=== PATIENT | female | born 1985 | race American Indian/Alaskan Native ===

== ENCOUNTER 2020-05-15 19:45 | Observation (INO) | payer OTHER ==
--- NOTE | 2020-05-15 19:55 | Emergency Department Report ---
ED Neuro Deficit HPI - General Chief Complaint: Weakness Stated Complaint: POSS STROKE Time Seen by Provider: 05/15/20 19:46 Source: patient Mode of arrival: Wheelchair Limitations: No Limitations - History of Present Illness Initial Comments: Patient is a 34-year-old female that presents emergency room with complaints of left-sided weakness and numbness. Patient states she is unable to move her left side. Patient drove here from work and had to be assisted out of her car because she could not walk. Patient states her symptoms started at 630. Ramana frank's last known well time 6:30 PM today. Patient denies chest pain. Patient denies shortness of breath. Patient denies headache. Patient denies blurry vision. Patient denies recent travel. Patient denies recent international travel. Patient denies exposure to the novel coronavirus. Patient denies sick contacts. Patient denies fever and chills. Patient denies cough. Patient denies di arrhea. Patient denies coming in contact with anybody with symptoms of the novel coronavirus. -: Sudden - Related Data Home Medications: Previous Rx's Medication Instructions Recorded Last Taken Type Chlorhexidine Gluconate [Hibiclens] 10 ml TP BID #240 liquid 07/01/18 Unknown Rx Ketorolac [Toradol] 10 mg PO Q6H PRN #15 tablet 07/01/18 Unknown Rx cephALEXin [Keflex] 500 mg PO Q6HR #40 capsule 07/01/18 Unknown Rx Allergies/Adverse Reactions: Allergies Allergy/AdvReac Type Severity Reaction Status Date / Time acetaminophen [From Percocet] Allergy Swelling Verified 07/01/18 16:02 oxycodone [From Percocet] Allergy Swelling Verified 07/01/18 16:02 ED Review of Systems ROS: Stated complaint: POSS STROKE Other details as noted in HPI Constitutional: weakness. denies: chills, fever Eyes: denies: eye pain, eye discharge, vision change ENT: denies: ear pain, throat pain Respiratory: denies: cough, shortness of breath, wheezing Cardiovascular: denies: chest pain, palpitations Endocrine: no symptoms reported Gastrointestinal: denies: abdominal pain, nausea, diarrhea Genitourinary: denies: urgency, dysuria, discharge Musculoskeletal: denies: back pain, joint swelling, arthralgia Skin: denies: rash, lesions Neurological: as per HPI, weakness. denies: headache, paresthesias Psychiatric: denies: anxiety, depression Hematological/Lymphatic: denies: easy bleeding, easy bruising ED Past Medical Hx - Past Medical History Previous Medical History?: No - Surgical History Past Surgical History?: Yes Additional Surgical History: C section - Family History Family history: no significant - Social History Smoking Status: Never Smoker Substance Use Type: None - Medications Home Medications: Home Medications Medication Instructions Recorded Confirmed Last Taken Type Chlorhexidine Gluconate [Hibiclens] 10 ml TP BID #240 liquid 07/01/18 Unknown Rx Ketorolac [Toradol] 10 mg PO Q6H PRN #15 tablet 07/01/18 Unknown Rx cephALEXin [Keflex] 500 mg PO Q6HR #40 capsule 07/01/18 Unknown Rx ED Neuro Physical Exam - General General appearance: alert, in no apparent distress Suspected Stroke: Yes - Head Head exam: Present: atraumatic, normocephalic - Eye Eye exam: Present: normal appearance - ENT ENT exam: Present: mucous membranes moist - Neck Neck exam: Present: normal inspection - Respiratory Respiratory exam: Present: normal lung sounds bilaterally. Absent: respiratory distress - Cardiovascular Cardiovascular Exam: Present: regular rate, normal rhythm. Absent: systolic murmur, diastolic murmur, rubs, gallop - GI/Abdominal GI/Abdominal exam: Present: soft, normal bowel sounds. Absent: distended, tenderness, guarding - Rectal Rectal exam: Present: deferred - Extremities Exam Extremities exam: Present: normal inspection - Back Exam Back exam: Present: normal inspection - Neurological Exam Neurological exam: Present: alert, oriented X3 - NIHSS Assessment Interval: Baseline 1a. Level of Consciousness: alert/keenly responsive 1b. LOC Questions: answers both correctly 1c. LOC Commands: performs tasks correctly 2. Best Gaze: normal 3. Visual: no visual loss 4. Facial Palsy: normal symmetrical movement 5b. Motor Arm Right: no drift 5a. Motor Arm Left: drift 6a. Motor Leg Left: drift 6b. Motor Leg Right: no drift 7. Limb Ataxia: absent 8. Sensory: severe/total sensory loss 9. Best Language: no aphasia 10. Dysarthria: normal 11. Extinction/Inattention: no abnormality Total Score: 4 Stroke Severity: Minor Stroke - Psychiatric Psychiatric exam: Present: normal affect, normal mood - Skin Skin exam: Present: warm, dry, intact, normal color. Absent: rash ED Course Vital Signs 05/15/20 05/15/20 05/15/20 20:21 20:26 20:30 Pulse Rate 73 75 Respiratory 16 16 18 Rate Blood Pressure 132/69 128/77 O2 Sat by Pulse 100 98 Oximetry 05/15/20 21:15 Pulse Rate 75 Respiratory 17 Rate Blood Pressure 134/63 O2 Sat by Pulse 100 Oximetry - Reevaluation(s) Reevaluation #1: After initial valuation, a code stroke was initiated and the patient was sent directly to CT scan and neurology was consulted. 05/15/20 19:54 Reevaluation #2: Patient consented to TPA. 05/15/20 20:15 Reevaluation #3: Just prior to placing the TPA order set, the patient began to move her left arm and left leg. 05/15/20 20:35 Reevaluation #4: I discussed all results with patient. I discussed plan of care with patient. Patient agrees with plan of care and admission. Patient to be admitted to the hospitalist service. 05/15/20 21:39 - Consultations Consultation #1: I discussed the case with Dr. RHODES and he recommends TPA and a CTA of the head neck. 05/15/20 20:15 Dr. Rhodes updated with the status changes that the patient is now moving her left arm and leg. Dr. Rhodes stated he will see the patient again. 05/15/20 20:39 Dr. Rhodes reassessed the patient decided not to do TPA but wants a CTA of the head neck done stat and admission for TIA work-up. 05/15/20 20:43 Consultation #2: Hospitalist consulted for admission. Hospitalist to admit patient. 05/15/20 21:39 - Lab Data Result diagrams: 05/15/20 20:05 05/15/20 20:05 Lab Results 05/15/20 05/15/20 05/15/20 Range/Units 20:05 20:05 20:05 WBC 6.8 (4.5-11.0) K/mm3 RBC 4.19 (3.65-5.03) M/mm3 Hgb 9.2 L (10.1-14.3) gm/dl Hct 30.1 L (30.3-42.9) % MCV 72 L (79-97) fl MCH 22 L (28-32) pg MCHC 31 (30-34) % RDW 19.0 H (13.2-15.2) % Plt Count 397 (140-440) K/mm3 Lymph % (Auto) 38.8 H (13.4-35.0) % [place] % (Auto) 6.6 (0.0-7.3) % Eos % (Auto) 1.1 (0.0-4.3) % Baso % (Auto) 1.3 (0.0-1.8) % Lymph # (Auto) 2.6 (1.2-5.4) K/mm3 [place] # (Auto) 0.4 (0.0-0.8) K/mm3 Eos # (Auto) 0.1 (0.0-0.4) K/mm3 Baso # (Auto) 0.1 (0.0-0.1) K/mm3 Seg Neutrophils % 52.2 (40.0-70.0) % Seg Neutrophils # 3.6 (1.8-7.7) K/mm3 PT 13.7 (12.2-14.9) Sec. INR 1.06 (0.87-1.13) APTT 31.4 (24.2-36.6) Sec. Thrombin Time 15.9 (15.1-19.6) Sec. Sodium 138 (137-145) mmol/L Potassium 4.1 (3.6-5.0) mmol/L Chloride 102.2 (98-107) mmol/L Carbon Dioxide 21 L (22-30) mmol/L Anion Gap 19 mmol/L BUN 10 (7-17) mg/dL Creatinine 0.7 (0.6-1.2) mg/dL Estimated GFR > 60 ml/min BUN/Creatinine Ratio 14 % Glucose 90 (65-100) mg/dL Calcium 9.2 (8.4-10.2) mg/dL Total Bilirubin 1.20 (0.1-1.2) mg/dL AST 21 (5-40) units/L ALT 13 (7-56) units/L Alkaline Phosphatase 78 (35-129) units/L Total Creatine Kinase 312 H (30-135) units/L CK-MB (CK-2) 4.4 H (0.0-4.0) ng/mL CK-MB (CK-2) Rel Index 1.4 (0-4) Troponin T < 0.010 (0.00-0.029) ng/mL Total Protein 8.3 H (6.3-8.2) g/dL Albumin 4.5 (3.9-5) g/dL Albumin/Globulin Ratio 1.2 % - EKG Data -: EKG Interpreted by Nv EKG shows normal: sinus rhythm, axis, intervals, QRS complexes, ST-T waves Rate: normal - Radiology Data Radiology results: report reviewed CT head/brain wo con INDICATION / CLINICAL INFORMATION: 34 years Female; code stroke. TECHNIQUE: Routine CT head without contrast. All CT scans at this location are performed using CT dose reduction for ALARA by means of automated exposure control. COMPARISON: None. FINDINGS: BRAIN / INTRACRANIAL CONTENTS: No acute hemorrhage, mass effect, midline shift, hydrocephalus, or acute, large territorial infarct. No signs of significant atrophy or chronic infarct. No significant white matter abnormality seen. CRANIOCERVICAL JUNCTION: No significant abnormality. ORBITS: No significant abnormality of visualized orbits. SINUSES / MASTOIDS: Visualized paranasal sinuses and mastoid air cells are essentially clear. ADDITIONAL FINDINGS: Prominent soft tissue is seen in the roof the nasopharynx, presumably related to reactive adenoidal tissue. Please clinically correlate. IMPRESSION: 1. No focal mass, hemorrhage, hydrocephalus, or acute, large territorial infarct. CT angio head INDICATION / CLINICAL INFORMATION: 34 years Female; Post-CODE STROKE PROTOCOL. Weakness, TIA.. TECHNIQUE: Thin cut axial images obtained through the head during IV bolus contrast administration. Sagittal, coronal, and 3 plane MIP reconstructions performed by the technologist. NASCET type criteria used evaluate stenoses. Automated exposure control utilized for radiation reduction purposes. COMPARISON: None available. FINDINGS: INTERNAL CAROTID ARTERIES: No significant narrowing appreciated. VERTEBROBASILAR SYSTEM: No significant narrowing appreciated. DISTAL BRANCHES: Distal branches of the anterior, middle, and posterior cerebral arteries are fairly symmetric in appearance and number. P1 segment on the left is relatively hypoplastic-fairly prominent posterior communicating artery is present on the left to help supply blood flow to the left posterior cerebral circulation. ANEURYSM: None identified. ADDITIONAL FINDINGS: Prominent soft tissue is seen in the roof the nasopharynx, presumably related to reactive adenoidal tissue. Please clinically correlate. IMPRESSION: No significant abnormality on this CTA of the head. CT angio neck INDICATION / CLINICAL INFORMATION: 34 years Female; Post-CODE STROKE PROTOCOL, Weakness, TIA. TECHNIQUE: Thin cut axial images obtained through the head during IV bolus contrast administration. Sagittal, coronal, and 3 plane MIP reconstructions performed by the technologist. NASCET type criteria used evaluate stenoses. All CT scans at this location are performed using CT dose reduction for ALARA by means of automated exposure control. COMPARISON: None available. FINDINGS: ARCH: Bovine arch configuration noted. CAROTID ARTERIES: The visualized common and internal carotid arteries are widely patent. VERTEBRAL ARTERIES: Codominant vertebral system seen. No significant stenosis appreciated. ADDITIONAL FINDINGS: Prominent soft tissue is seen in the roof the nasopharynx, presumably related to reactive adenoidal tissue. Please clinically correlate. [place] tonsillar tissue is mildly prominent as well. Small, multiple, presumed intraparotid lymph nodes seen bilaterally. IMPRESSION: No significant stenosis appreciated on this CTA of the neck. - Medical Decision Making Patient is a 33-year-old female that presents emergency room with complaints of left-sided numbness and weakness. Patient last known well time was 6:30 PM. Patient had a code stroke initiated upon initial evaluation. Patient sent directly to CT scan of the head. Patient CT scan of the head was negative for acute findings and bleeds. Patient was seen by neurology. Neurology recommended TPA however in the process of trying to order an obtain the TPA, the patient began to move her left side and her sensation came back to normal. Neurology was then reconsulted and neurology recommended not doing TPA and just do a CTA of the head and neck. Neurology also recommended admission for an MRI and TIA work-up. CTA of the head and neck were negative for acute findings. Patient admitted to the hospital service for further evaluation treatment. Critical care time documented is a multiple reassessments and prolonged time at bedside for reevaluation and evaluations. - Differential Diagnosis TIA, CVA, left-sided weakness, electrolyte imbalance Critical Care Time: Yes Critical care time in (mins) excluding proc time.: 80 Critical care attestation.: If time is entered above; I have spent that time in minutes in the direct care of this critically ill patient, excluding procedure time. Critical Care Time: 80 minutes ED Disposition Clinical Impression: Left-sided weakness, TIA (transient ischemic attack), Left sided numbness Anemia Qualifiers: Anemia type: unspecified type Qualified Code(s): D64.9 - Anemia, unspecified Disposition: 09 OP ADMIT IP TO THIS HOSP Is pt being admited?: Yes Does the pt Need Aspirin: No Condition: Critical Time of Disposition: 21:41
[2020-05-15 20:11] LABS: Basophils # (Auto) 0.1 K/mm3 (0.0-0.1); Basophils % (Auto) 1.3 % (0.0-1.8); Eosinophils # (Auto) 0.1 K/mm3 (0.0-0.4); Eosinophils % (Auto) 1.1 % (0.0-4.3); Hematocrit 30.1 % (30.3-42.9); Hemoglobin 9.2 gm/dl (10.1-14.3); Lymphocytes # (Auto) 2.6 K/mm3 (1.2-5.4); Lymphocytes % (Auto) 38.8 % (13.4-35.0); Mean Corpuscular HGB Conc 31 % (30-34); Mean Corpuscular Volume 72 fl (79-97); Monocytes # (Auto) 0.4 K/mm3 (0.0-0.8); Monocytes % (Auto) 6.6 % (0.0-7.3); Platelet Count 397 K/mm3 (140-440); Red Blood Count 4.19 M/mm3 (3.65-5.03)
--- NOTE | 2020-05-15 20:22 | Cat Scan Report ---
CT head/brain wo con INDICATION / CLINICAL INFORMATION: 34 years Female; code stroke. TECHNIQUE: Routine CT head without contrast. All CT scans at this location are performed using CT dos e reduction for ALARA by means of automated exposure control. COMPARISON: None. FINDINGS: BRAIN / INTRACRANIAL CONTENTS: No acute hemorrhage, mass effect, midline shift, hydrocephalus, or acu te, large territorial infarct. No signs of significant atrophy or chronic infarct. No significant whi te matter abnormality seen. CRANIOCERVICAL JUNCTION: No significant abnormality. ORBITS: No significant abnormality of visualized orbits. SINUSES / MASTOIDS: Visualized paranasal sinuses and mastoid air cells are essentially clear. ADDITIONAL FINDINGS: Prominent soft tissue is seen in the roof the nasopharynx, presumably related to reactive adenoidal tissue. Please clinically correlate. IMPRESSION: 1. No focal mass, hemorrhage, hydrocephalus, or acute, large territorial infarct. CODE STROKE: Exam Completed (LITIGATION SECRETARY/CDT): 05/15/2020 7:08 PM Exam Reviewed (LITIGATION SECRETARY/CDT): 7:13 PM Time of Communication (LITIGATION SECRETARY/CDT): 7:16 PM Licensed Practitioner Receiving Report: Dr. Parada Signer Name: Jw Brown MD, III Signed: 05/15/2020 8:17 PM Workstation Name: [email or web address]
[2020-05-15 20:23] LABS: INR 1.06 (0.87-1.13)
[2020-05-15 20:24] LABS: Partial Thromboplastin Time 31.4 Sec. (24.2-36.6); Thrombin Time 15.9 Sec. (15.1-19.6)
[2020-05-15 20:27] LABS: Creatine Kinase MB 4.4 ng/mL (0.0-4.0)
[2020-05-15 20:29] LABS: Alanine Aminotransferase 13 units/L (7-56); Albumin 4.5 g/dL (3.9-5); Blood Urea Nitrogen 10 mg/dL (7-17); Calcium 9.2 mg/dL (8.4-10.2); Hemolysis Index 2
[2020-05-15 20:30] LABS: BUN/Creatinine Ratio 14
--- NOTE | 2020-05-15 20:30 | Emergency Department Report ---
HPI - General Chief Complaint: Weakness Time Seen by Provider: 05/15/20 19:46 - HPI HPI: [facility] Consult Note # Demographics Consult Type: 0-6 hour Stroke First Name: debbie Last Name: nancy Date of : 1985 Age: 34 Gender: female Time of initial page ([place] ): 05-15-2020, 18:06 Time of return call ([place] ): 05-15-2020, 18:06 # HPI Additional History: 34yo woman who had left sided numbness starting at 630PM today. She is feeling a lot better. However, she still has complaints of weakness and numbness. Possible Alteplase Candidate: not on warfarin or NOACs, no intracranial hemorrhage history, no recent major surgery, no known active major internal bleeding, no known blood disorders # Scores Time of exam and NIHSS ([place] ): 05-15-2020, 18:07 Level of Consciousness 1a: [0] = Alert; keenly responsive LOC Questions 1b: [0] = Answers both questions correctly LOC Commands 1c: [0] = Performs both tasks correctly Best Gaze 2: [0] = Normal Visual 3: [0] = No visual loss Facial Palsy 4: [0] = Normal symmetrical movements Motor Arm Left 5a: [2] = Some effort against gravity Motor Arm Right 5b: [0] = No drift Motor Leg Left 6a: [3] = No effort against gravity Motor Leg Right 6b: [0] = No drift Limb Ataxia 7: [0] = Absent Sensory 8: [1] = Cnep-fw-ozjiigck sensory loss Best Language 9: [0] = No aphasia Dysarthria 10: [0] = Normal Extinction and Inattention 11: [0] = No abnormality NIHSS Total: 6 # ROS Cardiovascular: chest pain # PMH-FH-SH Past Medical History: denies Social History: non-smoker, non-drinker Medications: denies # Exam Vitals: vital signs reviewed SBP: 133 DBP: 64 # Data Time Head CT personally ready by me (): 05-15-2020, 18:[address]: no bleed # Assessment Impression: Acute Ischemic Stroke # Plan Thrombolytic/Intervention: IV alteplase Intraarterial Exclusion: clinically consistent with small vessel disease Time IV Alteplase Recommended (): 05-15-2020, 18:12 Blood Pressure Target: SBP < 180, DBP < 105 Labs: comprehensive metabolic panel, ESR, lipid panel Imaging: (urgency: STAT in ED): CT Angiogram Head and CT Angiogram Neck AND call back with results if abnormal Imaging: (urgency: routine admission): MRI Brain without contrast Diagnostic Test: echo with bubble study Therapy/Evaluation: NPO until swallow evaluation, PT/OT evaluation, speech/swallow consultation DVT Prophylaxis: SCD Alteplase Administration Recommendations: I reviewed the risks/benefits/alternatives of Alteplase with patient. She understands there is potential of life threatening hemorrhage from Alteplase. I stated that I believe benefit outweighs risk. She wishes to proceed with Alteplase, BP goal< 180/105 for 24hrs post Alteplase administration, Use Labetolol 10-20mg IV prn or Nicardipine gtt to maintain BP parameters, No antiplatelets or anticoagulants fo r next 24 hrs unless indicated for emergent IA procedure or other life threatening situation, ICU admission, Call back if there is any decline in neurological condition Other: telemetry monitoring, I have discussed my recommendations with the referring provider Disposition: transfer to ICU Addendum 642PM MST: Re-evaled pt due to improvement (she has not gotten her tPA yet). She is now an NIHSS of 1 (numbness sensation only) Recc: -given such significant improvement, I would hold off on tPA at this time , as she has non-disabling deficit -still get stat CTA head and neck -MRI brain, no contrast, if this is negative, no further stroke eval -give ASA 81mg perday -permissive HTN -ECHO with bubble study -admit to floor w tele -pt and ot eval ED Past Medical Hx - Past Medical History Previous Medical History?: No - Surgical History Past Surgical History?: Yes Additional Surgical History: C section - Social History Smoking Status: Former Smoker Substance Use Type: None - Medications Home Medications: Home Medications Medication Instructions Recorded Confirmed Last Taken Type Chlorhexidine Gluconate [Hibiclens] 10 ml TP BID #240 liquid 07/01/18 Unknown Rx Ketorolac [Toradol] 10 mg PO Q6H PRN #15 tablet 07/01/18 Unknown Rx cephALEXin [Keflex] 500 mg PO Q6HR #40 capsule 07/01/18 Unknown Rx ED Review of Systems ROS: Stated complaint: POSS STROKE Other details as noted in HPI Constitutional: weakness. denies: chills, fever Eyes: denies: eye pain, eye discharge, vision change ENT: denies: ear pain, throat pain Respiratory: denies: cough, shortness of breath, wheezing Cardiovascular: denies: chest pain, palpitations Endocrine: no symptoms reported Gastrointestinal: denies: abdominal pain, nausea, diarrhea Genitourinary: denies: urgency, dysuria, discharge Musculoskeletal: denies: back pain, joint swelling, arthralgia Skin: denies: rash, lesions Neurological: as per HPI, weakness. denies: headache, paresthesias Psychiatric: denies: anxiety, depression Hematological/Lymphatic: denies: easy bleeding, easy bruising Physical Exam - Physical Exam Vital Signs: Vital Signs 05/15/20 20:21 Pulse Rate 73 Respiratory 16 Rate Blood Pressure 132/69 O2 Sat by Pulse 100 Oximetry ED Course Vital Signs 05/15/20 20:21 Pulse Rate 73 Respiratory 16 Rate Blood Pressure 132/69 O2 Sat by Pulse 100 Oximetry ED Medical Decision Making - Lab Data Result diagrams: 05/15/20 20:05 05/15/20 20:05 Critical care attestation.: If time is entered above; I have spent that time in minutes in the direct care of this critically ill patient, excluding procedure time. ED Disposition Condition: Stable Referrals: PRIMARY CARE, [Primary Care Provider] - 3-5 Days
--- NOTE | 2020-05-15 21:39 | Cat Scan Report ---
CT angio head INDICATION / CLINICAL INFORMATION: 34 years Female; Post-CODE STROKE PROTOCOL. Weakness, TIA.. TECHNIQUE: Thin cut axial images obtained through the head during IV bolus contrast administration. S agittal, coronal, and 3 plane MIP reconstructions performed by the technologist. NASCET type criteria used evaluate stenoses. Automated exposure control utilized for radiation reduction purposes. COMPARISON: None available. FINDINGS: INTERNAL CAROTID ARTERIES: No significant narrowing appreciated. VERTEBROBASILAR SYSTEM: No significant narrowing appreciated. DISTAL BRANCHES: Distal branches of the anterior, middle, and posterior cerebral arteries are fairly symmetric in appearance and number. P1 segment on the left is relatively hypoplastic-fairly prominent posterior communicating artery is p resent on the left to help supply blood flow to the left posterior cerebral circulation. ANEURYSM: None identified. ADDITIONAL FINDINGS: Prominent soft tissue is seen in the roof the nasopharynx, presumably related to reactive adenoidal tissue. Please clinically correlate. IMPRESSION: No significant abnormality on this CTA of the head. Signer Name: Jw Brown MD, III Signed: 05/15/2020 9:35 PM Workstation Name: [email or web address] [email or web address]
[2020-05-15] MEDS ORDERED: ASPIRIN 325 MG TAB PO ONE (21:41)
--- NOTE | 2020-05-15 21:42 | Cat Scan Report ---
CT angio neck INDICATION / CLINICAL INFORMATION: 34 years Female; Post-CODE STROKE PROTOCOL, Weakness, TIA. TECHNIQUE: Thin cut axial images obtained through the head during IV bolus contrast administration. S agittal, coronal, and 3 plane MIP reconstructions performed by the technologist. NASCET type criteria used evaluate stenoses. All CT scans at this location are performed using CT dose reduction for ALAR A by means of automated exposure control. COMPARISON: None available. FINDINGS: ARCH: Bovine arch configuration noted. CAROTID ARTERIES: The visualized common and internal carotid arteries are widely patent. VERTEBRAL ARTERIES: Codominant vertebral system seen. No significant stenosis appreciated. ADDITIONAL FINDINGS: Prominent soft tissue is seen in the roof the nasopharynx, presumably related to reactive adenoidal tissue. Please clinically correlate. [place] tonsillar tissue is mildly prominen t as well. Small, multiple, presumed intraparotid lymph nodes seen bilaterally. IMPRESSION: No significant stenosis appreciated on this CTA of the neck. Signer Name: Jw Brown MD, III Signed: 05/15/2020 9:37 PM Workstation Name: [email or web address]
[2020-05-15] MEDS ORDERED: MAGNESIUM HYDROXIDE (MOM) ORAL LIQD UDC PO PRN (21:58)
[2020-05-15] MEDS ORDERED: PROMETHAZINE 25 MG RECT SUPP PR PRN (21:58)
[2020-05-15] MEDS ORDERED: ONDANSETRON 4 MG/2 ML INJ IV PRN (21:58)
[2020-05-15] MEDS ORDERED: METOCLOPRAMIDE 10 MG TAB PO PRN (21:58)
--- NOTE | 2020-05-15 22:08 | History and Physical Report ---
History of Present Illness Date of examination: 05/15/20 Date of admission: 05/15/2020 Chief complaint: Left sided weakness/Numbness History of present illness: 34 year old female with no significant past medical history presenting to the emergency room today with a complaints of left-sided weakness and numbness which started earlier this evening. Last known well time was about 6:30 PM today. Patient indicates that she was at work and she suddenly started having numbness and weakness on the left side. She denies any chest pain or shortness of breath, no headache or dizziness, no fever or chills, no nausea or vomiting, no abdominal pain, no diarrhea. Patient denies any sick contacts and no recent travel. Denies any contact with anyone with COVID-19. Upon arrival in the emergency room she indicates that she had to be helped out of a car she could not walk. During the course of her stay in the emergency room symptoms apparently resolved. Work-up today CT scan of the head was unremarkable. Labs and EKG were also unremarkable. Patient to be worked up for possible TIA . Past History Past Medical History: No medical history Past Surgical History: Social history: no significant social history Family history: no significant family history Medications and Allergies Allergies Allergy/AdvReac Type Severity Reaction Status Date / Time acetaminophen [From Percocet] Allergy Swelling Verified 07/01/18 16:02 oxycodone [From Percocet] Allergy Swelling Verified 07/01/18 16:02 Home Medications Medication Instructions Recorded Confirmed Last Taken Type Chlorhexidine Gluconate [Hibiclens] 10 ml TP BID #240 liquid 07/01/18 Unknown Rx Ketorolac [Toradol] 10 mg PO Q6H PRN #15 tablet 07/01/18 Unknown Rx cephALEXin [Keflex] 500 mg PO Q6HR #40 capsule 07/01/18 Unknown Rx Review of Systems Constitutional: no fever, no chills, no weakness Ears, nose, mouth and throat: no nasal congestion, no sore throat Cardiovascular: no chest pain, no palpitations Respiratory: no cough, no shortness of breath Gastrointestinal: no nausea, no vomiting, no diarrhea Genitourinary Female: no dysuria, no hematuria Musculoskeletal: no neck pain, no low back pain Integumentary: no rash, no pruritis Neurological: no headaches, no confusion Psychiatric: no anxiety, no depression Exam - Constitutional Vitals: Temp Pulse Resp BP Pulse Ox 75 17 134/63 100 05/15/20 21:15 05/15/20 21:15 05/15/20 21:15 05/15/20 21:15 General appearance: Present: no acute distress, well-nourished, obese - EENT Eyes: Present: PERRL, EOM intact. Absent: scleral icterus ENT: hearing intact, clear oral mucosa, dentition normal - Neck Neck: Present: supple, normal ROM - Respiratory Respiratory effort: normal Respiratory: bilateral: CTA - Cardiovascular Rhythm: regular Heart Sounds: Present: S1 & S2. Absent: gallop, systolic murmur, diastolic murm ur, rub, click - Extremities Extremities: no ischemia, pulses intact, pulses symmetrical, No edema, Full ROM Peripheral Pulses: within normal limits - Abdominal General gastrointestinal: Present: soft, non-tender, non-distended, normal bowel sounds. Absent: mass - Integumentary Integumentary: Present: clear, warm, dry. Absent: rash - Musculoskeletal Musculoskeletal: strength equal bilaterally - Psychiatric Psychiatric: appropriate mood/affect, intact judgment & insight, memory intact, cooperative - Neurologic Neurologic: CNII-XII intact, no focal deficits, moves all extremities HEART Score - HEART Score Troponin: Troponin T < 0.010 ng/mL (0.00-0.029) 05/15/20 20:05 Results - Labs CBC & Chem 7: 05/15/20 20:05 05/15/20 20:05 Labs: Abnormal lab results 05/15/20 05/15/20 Range/Units 20:05 20:05 Hgb 9.2 L (10.1-14.3) gm/dl Hct 30.1 L (30.3-42.9) % MCV 72 L (79-97) fl MCH 22 L (28-32) pg RDW 19.0 H (13.2-15.2) % Lymph % (Auto) 38.8 H (13.4-35.0) % Carbon Dioxide 21 L (22-30) mmol/L Total Creatine Kinase 312 H (30-135) units/L CK-MB (CK-2) 4.4 H (0.0-4.0) ng/mL Total Protein 8.3 H (6.3-8.2) g/dL Assessment and Plan - Patient Problems (1) TIA (transient ischemic attack) Current Visit: Yes Status: Acute Plan to address problem: Patient admitted and placed on telemetry. Will place patient on daily aspirin and statin. We will schedule patient for MRI of the brain, carotid Doppler and echocardiogram. Consult placed to neurology for evaluation. (2) Obesity Current Visit: Yes Status: Acute Plan to address problem: Patient has a BMI of 42.1. Lifestyle modification encouraged. We will also place dietary consult. (3) DVT prophylaxis Current Visit: Yes Status: Acute Plan to address problem: Patient placed on subcutaneous heparin. (4) Full code status Current Visit: Yes Status: Acute Plan to address problem: Patient is a full code.
[2020-05-16 05:38] LABS: Basophils % (Auto) 0.7 % (0.0-1.8); Eosinophils # (Auto) 0.2 K/mm3 (0.0-0.4); Eosinophils % (Auto) 3.2 % (0.0-4.3); Hematocrit 27.5 % (30.3-42.9); Hemoglobin 8.4 gm/dl (10.1-14.3); Lymphocytes # (Auto) 2.2 K/mm3 (1.2-5.4); Lymphocytes % (Auto) 42.6 % (13.4-35.0); Mean Corpuscular HGB Conc 31 % (30-34); Mean Corpuscular Volume 72 fl (79-97); Monocytes # (Auto) 0.4 K/mm3 (0.0-0.8); Monocytes % (Auto) 7.3 % (0.0-7.3); Platelet Count 339 K/mm3 (140-440); Red Blood Count 3.82 M/mm3 (3.65-5.03); Red Cell Distribution Width 18.5 % (13.2-15.2)
[2020-05-16 05:43] LABS: INR 1.18 (0.87-1.13)
[2020-05-16 05:50] LABS: Blood Urea Nitrogen 8 mg/dL (7-17); Calcium 8.3 mg/dL (8.4-10.2); Chol/HDL Ratio 2.88 %; HDL Cholesterol 42 mg/dL (40-59); Hemolysis Index 2; LDL Cholesterol,Direct 79 mg/dL (50-130)
[2020-05-16 06:04] LABS: BUN/Creatinine Ratio 11
[2020-05-16] MEDS: HEPARIN 5,000 UNIT/1 ML VIAL SUB-Q SCH ×3 (06:55→21:19)
[2020-05-16] MEDS ORDERED: ASPIRIN 325 MG TAB PO SCH (10:00)
--- NOTE | 2020-05-16 11:57 | Vascular Lab Report ---
DUPLEX DOPPLER ULTRASOUND CAROTID, BILATERAL INDICATION / CLINICAL INFORMATION: stroke. COMPARISON: None available. FINDINGS: RIGHT CAROTID: - PLAQUE ESTIMATE (%): < 50% - CCA velocity: 123 cm/sec. - ICA peak systolic velocity: 117 cm/sec. - ICA/CCA PSV Ratio: 0.95 Right Vertebral Artery: Antegrade flow. LEFT CAROTID: - PLAQUE ESTIMATE: < 50% - CCA velocity: 112 cm/sec. - ICA peak systolic velocity: 1 4 cm/sec. - ICA/CCA PSV Ratio: 0.93 Left Vertebral Artery: Antegrade flow. IMPRESSION: 1. Right Internal Carotid Artery: Less than 50% diameter stenosis. 2. Left Internal Carotid Artery: Less than 50% diameter stenosis. Velocity criteria are extrapolated from diameter data as defined by the Society of Radiologists in [facility] Consensus Conference, Radiology 2003; 229;340-346. NO STENOSIS (NORMAL) * Plaque = none; ICA PSV < 125 cm/sec; ICA/CCA PSV Ratio < 2.0 <50% STENOSIS * Plaque < 50%; ICA PSV < 125 cm/sec; ICA/CCA PSV Ratio < 2.0 50-69% STENOSIS * Plaque > 50%; ICA PSV = 125-230 cm/sec; ICA/CCA PSV Ratio = 2.0-4.0 >70% BUT <100% STENOSIS * Plaque > 50%; ICA PSV > 230 cm/sec; ICA/CCA PSV Ratio > 4.0 NEAR OCCLUSION * Plaque = visible lumen; ICA PSV = high/low/none; ICA/CCA PSV Ratio = variable TOTAL OCCLUSION * Plaque = no lumen; ICA PSV = none; ICA/CCA PSV Ratio = N/A Signer Name: Chente Rose MD Signed: 05/16/2020 11:52 AM Workstation Name: [id number]
--- NOTE | 2020-05-16 12:38 | Progress Note ---
Assessment and Plan Assessment and plan: #Transient ischemic attack CT head negative for any stroke in the ER CTA head and neck showed no acute abnormality Echocardiogram pending. MRI also pending Started on aspirin 325 mg daily Lipid panel Hemoglobin A1c-5.8 Neurology consultation #Morbid obesity Diet and exercise advised #DVT prophylaxis-Lovenox Full code History Interval history: 05/16. Patient here with stroke like symptoms. Symptoms resolved yesterday. CT head and CTA head and neck performed in the ER were negative for any acute abnormality. Neurologist has been consulted. Patient started on aspirin 325 mg daily. Echocardiogram and MRI ordered this morning. Vitals remained stable Hospitalist Physical - Physical exam Narrative exam: VITAL SIGNS: Reviewed. GENERAL: Awake HEAD: No signs of head trauma. EYES: Pupils are equal. Extraocular motions intact. MOUTH: Oropharynx is normal. NECK: No adenopathy, no JVD. CHEST: Chest with diminished breath sounds bilaterally. No wheezes, rales, or rhonchi. CARDIAC: normal S1 and S2, without murmurs, gallops, or rubs. ABDOMEN: Soft, non tender and non distended. No rebound or guarding, and no masses palpated. Bowel Sounds normal. MUSCULOSKELETAL: No edema NEUROLOGIC EXAM: Alert and oriented x3. No focal neurologic deficits SKIN: No obvious lesions - Constitutional Vitals: Temp Pulse Resp BP Pulse Ox 98.0 F 63 18 135/91 100 05/16/20 08:08 05/16/20 08:08 05/16/20 08:08 05/16/20 08:08 05/16/20 08:08 HEART Score - HEART Score Troponin: Troponin T < 0.010 ng/mL (0.00-0.029) 05/15/20 20:05 Results - Labs CBC & Chem 7: 05/16/20 04:47 05/16/20 04:47 Labs: Laboratory Last Values WBC 5.1 K/mm3 (4.5-11.0) 05/16/20 04:47 RBC 3.82 M/mm3 (3.65-5.03) 05/16/20 04:47 Hgb 8.4 gm/dl (10.1-14.3) L 05/16/20 04:47 Hct 27.5 % (30.3-42.9) L 05/16/20 04:47 MCV 72 fl (79-97) L 05/16/20 04:47 MCH 22 pg (28-32) L 05/16/20 04:47 MCHC 31 % (30-34) 05/16/20 04:47 RDW 18.5 % (13.2-15.2) H 05/16/20 04:47 Plt Count 339 K/mm3 (140-440) 05/16/20 04:47 Lymph % (Auto) 42.6 % (13.4-35.0) H 05/16/20 04:47 [place] % (Auto) 7.3 % (0.0-7.3) 05/16/20 04:47 Eos % (Auto) 3.2 % (0.0-4.3) 05/16/20 04:47 Baso % (Auto) 0.7 % (0.0-1.8) 05/16/20 04:47 Lymph # (Auto) 2.2 K/mm3 (1.2-5.4) 05/16/20 04:47 Band[place] # (Auto) 0.4 K/mm3 (0.0-0.8) 05/16/20 04:47 Eos # (Auto) 0.2 K/mm3 (0.0-0.4) 05/16/20 04:47 Baso # (Auto) 0.0 K/mm3 (0.0-0.1) 05/16/20 04:47 Seg Neutrophils % 46.2 % (40.0-70.0) 05/16/20 04:47 Seg Neutrophils # 2.4 K/mm3 (1.8-7.7) 05/16/20 04:47 PT 15.0 Sec. (12.2-14.9) H 05/16/20 04:47 INR 1.18 (0.87-1.13) H 05/16/20 04:47 APTT 31.4 Sec. (24.2-36.6) 05/15/20 20:05 Thrombin Time 15.9 Sec. (15.1-19.6) 05/15/20 20:05 Sodium 136 mmol/L (137-145) L 05/16/20 04:47 Potassium 3.8 mmol/L (3.6-5.0) 05/16/20 04:47 Chloride 103.2 mmol/L (98-107) 03/04/21 04:47 Carbon Dioxide 24 mmol/L (22-30) 05/16/20 04:47 Anion Gap 13 mmol/L 05/16/20 04:47 BUN 8 mg/dL (7-17) 05/16/20 04:47 Creatinine 0.7 mg/dL (0.6-1.2) 05/16/20 04:47 Estimated GFR > 60 ml/min 05/16/20 04:47 BUN/Creatinine Ratio 11 % 05/16/20 04:47 Glucose 100 mg/dL (65-100) 05/16/20 04:47 Hemoglobin A1c 5.3 % (4-6) 05/16/20 04:47 Calcium 8.3 mg/dL (8.4-10.2) L 05/16/20 04:47 Total Bilirubin 1.20 mg/dL (0.1-1.2) 05/15/20 20:05 AST 21 units/L (5-40) 05/15/20 20:05 ALT 13 units/L (7-56) 05/15/20 20:05 Alkaline Phosphatase 78 units/L (35-129) 05/15/20 20:05 Total Creatine Kinase 312 units/L (30-135) H 05/15/20 20:05 CK-MB (CK-2) 4.4 ng/mL (0.0-4.0) H 05/15/20 20:05 CK-MB (CK-2) Rel Index 1.4 (0-4) 05/15/20 20:05 Troponin T < 0.010 ng/mL (0.00-0.029) 05/15/20 20:05 Total Protein 8.3 g/dL (6.3-8.2) H 05/15/20 20:05 Albumin 4.5 g/dL (3.9-5) 05/15/20 20:05 Albumin/Globulin Ratio 1.2 % 05/15/20 20:05 Triglycerides 66 mg/dL (2-149) 05/16/20 04:47 Cholesterol 121 mg/dL (50-199) 05/16/20 04:47 LDL Cholesterol Direct 79 mg/dL (50-130) 05/16/20 04:47 HDL Cholesterol 42 mg/dL (40-59) 05/16/20 04:47 Cholesterol/HDL Ratio 2.88 % 05/16/20 04:47 Villa/IV: Voiding Method Toilet Active Medications - Current Medications Current Medications: Generic Name Dose Route Start Last Admin Trade Name Freq PRN Reason Stop Dose Admin Aspirin 325 mg 05/16/20 10:00 05/16/20 12:04 Aspirin 325 Mg Tab PO 325 mg QDAY GUILLERMO Administration Atorvastatin Calcium 40 mg 05/15/20 22:00 05/15/20 23:45 Atorvastatin 40 Mg Tab PO 40 mg QHS GUILLERMO Administration Bisacodyl 10 mg 05/15/20 21:58 Bisacodyl [address] QDAY PRN Constipation Heparin Sodium (Porcine) 5,000 unit 05/16/20 06:00 05/16/20 06:55 Heparin 5,000 Unit/1 Ml Vial SUB-Q 5,000 unit Q8HR GUILLERMO Administration Magnesium Hydroxide 30 ml 05/15/20 21:58 Magnesium Hydroxide (Mom) Oral Liqd Udc PO Q4H PRN Constipation Metoclopramide HCl 10 mg 05/15/20 21:58 Metoclopramide 10 Mg Tab PO Q6H PRN Nausea And Vomiting Ondansetron HCl 4 mg 05/15/20 21:58 Ondansetron 4 Mg/2 Ml Inj IV Q8H PRN Nausea And Vomiting Promethazine HCl 25 mg 05/15/20 21:58 Promethazine [address] Q6H PRN Nausea And Vomiting Sodium Chloride 10 ml 05/15/20 22:00 05/16/20 12:04 Sodium Chloride 0.9% 10 Ml Flush Syringe IV 10 ml BID GUILLERMO Administration Sodium Chloride 10 ml 05/15/20 21:58 Sodium Chloride 0.9% 10 Ml Flush Syringe IV PRN PRN LINE FLUSH
--- NOTE | 2020-05-16 12:47 | Magnetic Resonance Report ---
MRI BRAIN WITHOUT CONTRAST INDICATION / CLINICAL INFORMATION: stroke. TECHNIQUE: Multiplanar, multisequence MR images of the brain were obtained. COMPARISON: None available. FINDINGS: BRAIN / INTRACRANIAL CONTENTS: Ventricles and cortical sulci are normal in size and configuration. Th ere is no mass effect. No evidence of intracranial hemorrhage or extra-axial fluid collection is seen . No significant areas of abnormal brain parenchymal signal intensity are identified. There is no ind ication of remote cortical infarction. Diffusion weighted scans are negative. There is no indication of acute ischemic injury. The brainstem and cerebellum have an unremarkable appearance. MIDLINE STRUCTURES:No abnormalities are seen to involve the pituitary gland. Pineal region has an unr emarkable appearance. CRANIOCERVICAL JUNCTION: No abnormalities are identified at the craniocervical junction. VASCULAR FLOW-VOIDS: Normal flow-voids are present within the major intracranial vessels. ORBITS: Bilaterally symmetrical enlargement of the lacrimal glands is noted. Are there signs or sympt oms of Sjogren's syndrome SINUSES / MASTOIDS: There is no indication of inflammatory disease in the paranasal sinuses or mastoi d air cells. IMPRESSION: 1. No intercranial abnormality on MRI brain without contrast. 2. Bilaterally symmetrical enlargement of the lacrimal glands is demonstrated. Signer Name: Delmer Basilio MD Signed: 05/16/2020 12:43 PM Workstation Name: [id number]
--- NOTE | 2020-05-16 14:53 | Consultation ---
History of Present Illness Consult date: 05/16/20 Reason for Consult: CVA Chief complaint: Left-sided numbness History of present illness: 34 yo female p/w c/o left-sided numbness that initially began in the left foot and then involved the left arm and leg, followed by chest pain. Currently, notes left heel numbness. Past History Past Medical History: No medical history Past Surgical History: Social history: no significant social history Family history: no significant family history Medications and Allergies Allergies Allergy/AdvReac Type Severity Reaction Status Date / Time acetaminophen [From Percocet] Allergy Swelling Verified 07/01/18 16:02 oxycodone [From Percocet] Allergy Swelling Verified 07/01/18 16:02 Home Medications Medication Instructions Recorded Confirmed Last Taken Type Chlorhexidine Gluconate [Hibiclens] 10 ml TP BID #240 liquid 07/01/18 Unknown Rx Ketorolac [Toradol] 10 mg PO Q6H PRN #15 tablet 07/01/18 Unknown Rx cephALEXin [Keflex] 500 mg PO Q6HR #40 capsule 07/01/18 Unknown Rx Active Meds: Active Medications Aspirin (Aspirin 325 Mg Tab) 325 mg PO QDAY [facility] Last Admin: 05/16/20 12:04 Dose: 325 mg Documented by: Atorvastatin Calcium (Atorvastatin 40 Mg Tab) 40 mg PO QHS [facility] Last Admin: 05/15/20 23:45 Dose: 40 mg Documented by: Bisacodyl (Bisacodyl 10 Mg Rect Supp) 10 mg ME QDAY PRN PRN Reason: Constipation Heparin Sodium (Porcine) (Heparin 5,000 Unit/1 Ml Vial) 5,000 unit SUB-Q Q8HR [facility] Last Admin: 05/16/20 13:59 Dose: 5,000 unit Documented by: Magnesium Hydroxide (Magnesium Hydroxide (Mom) Oral Liqd Udc) 30 ml PO Q4H PRN PRN Reason: Constipation Metoclopramide HCl (Metoclopramide 10 Mg Tab) 10 mg PO Q6H PRN PRN Reason: Nausea And Vomiting Ondansetron HCl (Ondansetron 4 Mg/2 Ml Inj) 4 mg IV Q8H PRN PRN Reason: Nausea And Vomiting Promethazine HCl (Promethazine 25 Mg Rect Supp) 25 mg ME Q6H PRN PRN Reason: Nausea And Vomiting Sodium Chloride (Sodium Chloride 0.9% 10 Ml Flush Syringe) 10 ml IV BID GUILLERMO Last Admin: 05/16/20 12:04 Dose: 10 ml Documented by: Sodium Chloride (Sodium Chloride 0.9% 10 Ml Flush Syringe) 10 ml IV PRN PRN PRN Reason: LINE FLUSH Review of Systems All systems: negative (as per HPI;) Physical Examination - Vital Signs Vital Signs: Vital Signs Temp Pulse Resp BP Pulse Ox 98 F 73 16 121/70 100 05/15/20 20:21 05/15/20 20:21 05/15/20 20:21 05/15/20 20:21 05/15/20 20:21 - Physical Exam Narrative exam: Gen: nad, well-nourished; Head: normocephalic; Eyes: no gaze deviation; no ptosis; ENT: normal vocalization; CVS: warm and well-perfused; Pulm: no respiratory distress; GI: appears non-distended; Ext: no cyanosis at distal extremities; Skin: no acute rash at distal extremities; Heme: no pathologic bruising or ecchymosis at distal extremities; Neuro: alert, oriented to name, age, month, year, surroundings, no dysarthria, no aphasia, CN 2 - PERRL, visual zuniga intact, CN 3, 4, 6 - EOMI, CN 5 - facial sensation symmetric to light touch, CN 7 - facial movement symmetric, CN 8 - hearing grossly intact, CN 9, 10 - uvula midline, CN 11 - shrug symmetric, CN 12 - tongue midline; Motor - at least 4+/5 in all exts; Sensory - light touch symmetric, Cerebellar - fnf /hts intact, Gait - deferred secondary to fall risk; NIHSS (1a.) Level of Consciousness:0 (1b.) LOC Questions:0 (1c.) LOC Commands:0 (2.) Best Gaze:0 (3.) Visual:0 (4.) Facial Palsy:0 (5a.) Motor Arm, Left:0 (5b.) Motor Arm, Right:0 (6a.) Motor Leg, Left:0 (6b.) Motor Leg, Right:0 (7.) Limb Ataxia:0 (8.) Sensory:0 (9.) Best Language:0 (10.) Dysarthria:0 (11.) Extinction and Inattention:0 NIHSS Total Score: 0 Results - Laboratory Findings CBC and BMP: 05/16/20 04:47 05/16/20 04:47 Abnormal Lab Findings: Abnormal Labs 05/15/20 05/15/20 05/16/20 20:05 20:05 04:47 Hgb 9.2 L 8.4 L Hct 30.1 L 27.5 L MCV 72 L 72 L MCH 22 L 22 L RDW 19.0 H 18.5 H Lymph % (Auto) 38.8 H 42.6 H PT INR Sodium Carbon Dioxide 21 L Calcium Total Creatine Kinase 312 H CK-MB (CK-2) 4.4 H Total Protein 8.3 H 05/16/20 05/16/20 04:47 04:47 Hgb Hct MCV MCH RDW Lymph % (Auto) PT 15.0 H INR 1.18 H Sodium 136 L Carbon Dioxide Calcium 8.3 L Total Creatine Kinase CK-MB (CK-2) Total Protein Assessment and Plan 34 yo female with acute onset of left-sided numbness followed by chest pain. 1. Left heel numbness - ?clot; recommend a hypercoaguable workup; Aspirin 81 mg po qday; statin therapy for a goal LDL of 70; TTE/CUS results pending; confirm A1C/LDL; statin therapy for a goal LDL of 70. 2. Followup with Neurology in 4 weeks.
--- NOTE | 2020-05-16 15:16 | Consultation ---
History of Present Illness - Reason for Consult Consult date: 05/16/20 - History of Present Illness [facility] Consult Note # Demographics Consult Type: 0-6 hour Stroke First Name: debbie Last Name: nancy Date of : 1985 Age: 34 Gender: female Time of initial page ([place] ): 05-15-2020, 18:06 Time of return call ([place] ): 05-15-2020, 18:06 # HPI Additional History: 34yo woman who had left sided numbness starting at 630PM today. She is feeling a lot better. However, she still has complaints of weakness and numbness. Possible Alteplase Candidate: not on warfarin or NOACs, no intracranial hemorrhage history, no recent major surgery, no known active major internal bleeding, no known blood disorders # Scores Time of exam and NIHSS ([place] ): 05-15-2020, 18:07 Level of Consciousness 1a: [0] = Alert; keenly responsive LOC Questions 1b: [0] = Answers both questions correctly LOC Commands 1c: [0] = Performs both tasks correctly Best Gaze 2: [0] = Normal Visual 3: [0] = No visual loss Facial Palsy 4: [0] = Normal symmetrical movements Motor Arm Left 5a: [2] = Some effort against gravity Motor Arm Right 5b: [0] = No drift Motor Leg Left 6a: [3] = No effort against gravity Motor Leg Right 6b: [0] = No drift Limb Ataxia 7: [0] = Absent Sensory 8: [1] = [id number] sensory loss Best Language 9: [0] = No aphasia Dysarthria 10: [0] = Normal Extinction and Inattention 11: [0] = No abnormality NIHSS Total: 6 # ROS Cardiovascular: chest pain # PMH-FH-SH Past Medical History: denies Social History: non-smoker, non-drinker Medications: denies # Exam Vitals: vital signs reviewed SBP: 133 DBP: 64 # Data Time Head CT personally ready by me (): 05-15-2020, 18:[address]: no bleed # Assessment Impression: Acute Ischemic Stroke # Plan Thrombolytic/Intervention: IV alteplase Intraarterial Exclusion: clinically consistent with small vessel disease Time IV Alteplase Recommended (): 05-15-2020, 18:12 Blood Pressure Target: SBP < 180, DBP < 105 Labs: comprehensive metabolic panel, ESR, lipid panel Imaging: (urgency: STAT in ED): CT Angiogram Head and CT Angiogram Neck AND call back with results if abnormal Imaging: (urgency: routine admission): MRI Brain without contrast Diagnostic Test: echo with bubble study Therapy/Evaluation: NPO until swallow evaluation, PT/OT evaluation, speech/swallow consultation DVT Prophylaxis: SCD Alteplase Administration Recommendations: I reviewed the risks/benefits/alter natives of Alteplase with patient. She understands there is potential of life threatening hemorrhage from Alteplase. I stated that I believe benefit outweighs risk. She wishes to proceed with Alteplase, BP goal< 180/105 for 24hrs post Alteplase administration, Use Labetolol 10-20mg IV prn or Nicardipine gtt to maintain BP parameters, No antiplatelets or anticoagulants for next 24 hrs unless indicated for emergent IA procedure or other life threatening situation, ICU admission, Call back if there is any decline in neurological condition Other: telemetry monitoring, I have discussed my recommendations with the referring provider Disposition: transfer to ICU Addendum 642PM MST: Re-evaled pt due to improvement (she has not gotten her tPA yet). She is now an NIHSS of 1 (numbness sensation only) Recc: -given such significant improvement, I would hold off on tPA at this time , as she has non-disabling deficit -still get stat CTA head and neck -MRI brain, no contrast, if this is negative, no further stroke eval -give ASA 81mg perday -permissive HTN -ECHO with bubble study -admit to floor w tele -pt and ot eval Past History Past Medical History: No medical history Past Surgical History: Social history: no significant social history Family history: no significant family history Medications and Allergies Allergies Allergy/AdvReac Type Severity Reaction Status Date / Time acetaminophen [From Percocet] Allergy Swelling Verified 07/01/18 16:02 oxycodone [From Percocet] Allergy Swelling Verified 07/01/18 16:02 Home Medications Medication Instructions Recorded Confirmed Last Taken Type Chlorhexidine Gluconate [Hibiclens] 10 ml TP BID #240 liquid 07/01/18 Unknown Rx Ketorolac [Toradol] 10 mg PO Q6H PRN #15 tablet 07/01/18 Unknown Rx cephALEXin [Keflex] 500 mg PO Q6HR #40 capsule 07/01/18 Unknown Rx Active Meds: Active Medications Aspirin (Aspirin 325 Mg Tab) 325 mg PO QDAY [facility] Last Admin: 05/16/20 12:04 Dose: 325 mg Documented by: Atorvastatin Calcium (Atorvastatin 40 Mg Tab) 40 mg PO QHS [facility] Last Admin: 05/15/20 23:45 Dose: 40 mg Documented by: Bisacodyl (Bisacodyl 10 Mg Rect Supp) 10 mg OK QDAY PRN PRN Reason: Constipation Heparin Sodium (Porcine) (Heparin 5,000 Unit/1 Ml Vial) 5,000 unit SUB-Q Q8HR [facility] Last Admin: 05/16/20 13:59 Dose: 5,000 unit Documented by: Magnesium Hydroxide (Magnesium Hydroxide (Mom) Oral Liqd Udc) 30 ml PO Q4H PRN PRN Reason: Constipation Metoclopramide HCl (Metoclopramide 10 Mg Tab) 10 mg PO Q6H PRN PRN Reason: Nausea And Vomiting Ondansetron HCl (Ondansetron 4 Mg/2 Ml Inj) 4 mg IV Q8H PRN PRN Reason: Nausea And Vomiting Promethazine HCl (Promethazine 25 Mg Rect Supp) 25 mg OK Q6H PRN PRN Reason: Nausea And Vomiting Sodium Chloride (Sodium Chloride 0.9% 10 Ml Flush Syringe) 10 ml IV BID [facility] Last Admin: 05/16/20 12:04 Dose: 10 ml Documented by: Sodium Chloride (Sodium Chloride 0.9% 10 Ml Flush Syringe) 10 ml IV PRN PRN PRN Reason: LINE FLUSH Exam - Constitutional Vitals: Temp Pulse Resp BP Pulse Ox 98.0 F 63 18 135/91 100 05/16/20 08:08 05/16/20 08:08 05/16/20 08:08 05/16/20 08:08 05/16/20 10:20 Results - Labs CBC & Chem 7: 05/16/20 04:47 05/16/20 04:47 Labs: Abnormal lab results 05/15/20 05/15/20 05/16/20 Range/Units 20:05 20:05 04:47 Hgb 9.2 L 8.4 L (10.1-14.3) gm/dl Hct 30.1 L 27.5 L (30.3-42.9) % MCV 72 L 72 L (79-97) fl MCH 22 L 22 L (28-32) pg RDW 19.0 H 18.5 H (13.2-15.2) % Lymph % (Auto) 38.8 H 42.6 H (13.4-35.0) % PT (12.2-14.9) Sec. INR (0.87-1.13) Sodium (137-145) mmol/L Carbon Dioxide 21 L (22-30) mmol/L Calcium (8.4-10.2) mg/dL Total Creatine Kinase 312 H (30-135) units/L CK-MB (CK-2) 4.4 H (0.0-4.0) ng/mL Total Protein 8.3 H (6.3-8.2) g/dL 05/16/20 05/16/20 Range/Units 04:47 04:47 Hgb (10.1-14.3) gm/dl Hct (30.3-42.9) % MCV (79-97) fl MCH (28-32) pg RDW (13.2-15.2) % Lymph % (Auto) (13.4-35.0) % PT 15.0 H (12.2-14.9) Sec. INR 1.18 H (0.87-1.13) Sodium 136 L (137-145) mmol/L Carbon Dioxide (22-30) mmol/L Calcium 8.3 L (8.4-10.2) mg/dL Total Creatine Kinase (30-135) units/L CK-MB (CK-2) (0.0-4.0) ng/mL Total Protein (6.3-8.2) g/dL
[2020-05-17] MEDS: HEPARIN 5,000 UNIT/1 ML VIAL SUB-Q SCH ×2 (05:05→14:02)
[2020-05-17 08:19] VITALS: BP 131/76
--- NOTE | 2020-05-17 09:20 | Discharge Summary ---
Providers - Providers Date of Admission: 05/15/20 21:45 Date of discharge: 05/17/20 Attending physician: NASH JACKSON 05/15/20 Consult to Physician [CONS] Routine Comment: Consulting Provider: MITESH TA Physician Instructions: Reason For Exam: TIA VS CVA 05/15/20 21:58 Consult to Dietitian/Nutrition [CONS] Routine Physician Instructions: Reason For Exam: Reason for Consult: Nutrition Recommendations Reason for Consult: Diet education Occupational Therapy Evaluate and Treat [CONS] Routine Comment: Reason For Exam: Neuro deficits Physical Therapy Evaluation and Treat [CONS] Routine Comment: Reason For Exam: Neuro deficits 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 Last known well time was about 6:30 PM prior to admission. Patient indicates that she was at work and she suddenly started having numbness and weakness on the left side. She denied any chest pain or shortness of breath, no headache or dizziness, no fever or chills, no nausea or vomiting, no abdominal pain, no diarrhea. Patient denied any sick contacts and no recent travel. Denied any contact with anyone with COVID-19. CT scan of the head was unremarkable. Patient was admitted with diagnosis of TIA and underwent studies including carotid ultrasound and echocardiogram which were found to be negative. No PFO. CTA of the head and neck was also negative. MRI negative. Neurology was consulted and recommended hypercoagulable work-up with aspirin 81 mg p.o. daily. Hypercoagulable studies ordered and patient will follow up with neurology in 4 weeks for follow-up of studies and further evaluation. Physical therapy evaluated the patient and recommended outpatient physical therapy. Dedicated discharge time 35 minutes Disposition: DC-01 TO HOME OR SELFCARE Time spent for discharge: 35 Core Measure Documentation - Palliative Care Palliative Care/ Comfort Measures: Not Applicable - Core Measures Any of the following diagnoses?: stroke - Stroke Discharge Requirements Statin for LDL = or >70 mg/dl on DC: Yes Anticoag for atrial fib/atrial flutter: Not Applicable Antithrombotic for ischemic stroke: Yes Exam - Constitutional Vitals: Temp Pulse Resp BP Pulse Ox 98.0 F 55 L 18 131/76 94 05/17/20 08:19 05/17/20 08:19 05/17/20 08:19 05/17/20 08:19 05/17/20 08:19 General appearance: Present: no acute distress, well-nourished - EENT Eyes: Present: PERRL ENT: hearing intact, clear oral mucosa - Neck Neck: Present: supple, normal ROM - Respiratory Respiratory effort: normal Respiratory: bilateral: CTA - Cardiovascular Heart Sounds: Present: S1 & S2. Absent: rub, click - Extremities Extremities: pulses symmetrical, No edema Peripheral Pulses: within normal limits - Abdominal General gastrointestinal: Present: soft, non-tender, non-distended, normal bowel sounds Female genitourinary: Present: normal - Integumentary Integumentary: Present: clear, warm, dry - Musculoskeletal Musculoskeletal: gait normal, strength equal bilaterally - Psychiatric Psychiatric: appropriate mood/affect, intact judgment & insight - Neurologic Neurologic: CNII-XII intact, moves all extremities Plan Activity: advance as tolerated Weight Bearing Status: Weight Bear as Tolerated Diet: regular Additional Instructions: Follow-up with neurology for hypercoagulable work-up Follow up with: PRIMARY MD MARISSA [Primary Care Provider] - 3-5 Days MITESH TA MD [Staff Physician] - 7 Days Prescriptions: Aspirin EC [Halfprin EC] 81 mg PO QDAY #30 tablet AtorvaSTATin [Lipitor] 40 mg PO QHS #30 tablet
--- NOTE | 2020-05-17 09:45 | Magnetic Resonance Report ---
MR MRA/MRV head wo con INDICATION / CLINICAL INFORMATION: 34 years Female; VST. TECHNIQUE: 3-D time of flight. NASCET type criteria used to evaluate stenoses. Motion artifact COMPARISON: None available. FINDINGS: INTERNAL CAROTID ARTERIES: Focal area of mild narrowing is seen in the proximal aspect of the communi cating portion of the left internal carotid artery. No other significant narrowing appreciated in the carotid arteries. VERTEBROBASILAR SYSTEM: No significant narrowing appreciated. DISTAL BRANCHES: Distal branches of the anterior, middle, and posterior cerebral arteries are fairly symmetric in appearance and number. Focal areas of mild narrowing are seen in the hypoplastic P1 segment on the left. Focal area of moderate narrowing is suggested in the proximal portion of a frontoparietal polar branc h in the left MCA territory. ANEURYSM: None identified. IMPRESSION: There are areas of narrowing identified as described above. Signer Name: Jw Brown MD, III Signed: 05/17/2020 9:41 AM Workstation Name: [id number]
[2020-05-17] MEDS ORDERED: ASPIRIN EC 81 MG TAB PO SCH (10:00)
== END 2020-05-17 13:40 | disposition home or self-care (01) ==
LOC: ED 19:45 → 4A 21:45
PROVIDERS: ADMIT Internal Medicine Geriatric Medicine; ATTEND Hospitalist
DX: G45.9 Transient cerebral ischemic attack, unspecified (principal); E66.01 Morbid (severe) obesity due to excess calories; R29.704 NIHSS score 4; Z98.891 History of uterine scar from previous surgery; Z79.82 Long term (current) use of aspirin; Z79.899 Other long term (current) drug therapy; Z68.41 Body mass index [BMI] 40.0-44.9, adult
CPT/HCPCS: 36415; 70450; 70496; 70498; 70544; 70551; 80048; 80053; 80061; 82550; 82553; 83036; 84484; 85025; 85220; 85240; 85305; 85610; 85670; 85730; 93005; 93306; 93880; 96372; 97116; 97162; 99291; 99292; A9270; G0378; J1644; Q9967

== ENCOUNTER 2020-12-02 05:11 | Emergency (ER) | payer BC ==
[2020-12-02] MEDS ORDERED: IBUPROFEN 600 MG TAB PO ONE (05:49)
--- NOTE | 2020-12-02 05:49 | Emergency Department Report ---
ED General Adult HPI - General Chief complaint: Extremity Injury, Upper Stated complaint: BOTH HANDS SWOLLEN/PAIN Time Seen by Provider: 12/02/20 05:34 Source: patient Mode of arrival: Ambulatory Limitations: No Limitations - History of Present Illness Initial comments: 35-year-old female who denies any significant past medical history presents to the ER today with complaints of bilateral hand pain and swelling as well as UTI symptoms. Patient states that 4 days ago she started with bilateral hand pain and swelling. Patient states that she works as a room attendants at work, and she has been washing dishes every day for the past week and a hand has been constantly water. She also has a second job with the same company where she has also been washing dishes. She states that her hands and fingers are very painful and are swollen and she is having difficulty using her hands and fingers due to the pain. She also reports a dry peeling rash to her hands. She states that hands are a little bit red but otherwise no bruising, or pallor. She denies any change in temperature to the hands. She reports mild tingling throughout the entire hand but no numbness or weakness. She denies any similar symptoms in the past. Patient also states that she has been having dysuria, urinary frequency and urgency for the past 4 days. She denies any hematuria or urinary odor. She is currently on her menstrual cycle. She reports no abdominal pain pelvic pain or back pain, fever, chills, nausea or vomiting. She states that she has had a UTI in the past and it feels similar. The last time she had a UTI was 2 years ago. MD Complaint: Bilateral hand pain and swelling; UTI symptoms -: days(s) - Related Data Previous Rx's Medication Instructions Recorded Last Taken Type Aspirin EC [Halfprin EC] 81 mg PO QDAY #30 tablet 05/17/20 Unknown Rx AtorvaSTATin [Lipitor] 40 mg PO QHS #30 tablet 05/17/20 Unknown Rx Hydrocortisone 1% [Hydrocortisone 1 applicatio TP BID 7 Days #1 tube 12/02/20 Unknown Rx 1% CREAM] Ibuprofen [Motrin] 600 mg PO Q8H PRN #30 tablet 12/02/20 Unknown Rx Phenazopyridine [Pyridium] 200 mg PO TID PRN #9 tab 12/02/20 Unknown Rx Sulfamethoxazole/Trimethoprim 1 each PO BID #10 tablet 12/02/20 Unknown Rx [Bactrim DS TAB] Allergies Allergy/AdvReac Type Severity Reaction Status Date / Time acetaminophen [From Percocet] Allergy Swelling Verified 07/01/18 16:02 oxycodone [From Percocet] Allergy Swelling Verified 07/01/18 16:02 ED Review of Systems ROS: Stated complaint: BOTH HANDS SWOLLEN/PAIN Other details as noted in HPI Comment: All other systems reviewed and negative Constitutional: denies: chills, fever Eyes: denies: eye pain, eye discharge, vision change ENT: denies: ear pain, throat pain, dental pain, hearing loss, congestion Respiratory: denies: cough, shortness of breath, SOB with exertion, SOB at rest, wheezing Cardiovascular: denies: chest pain, palpitations Gastrointestinal: denies: abdominal pain, nausea, diarrhea Genitourinary: urgency, dysuria, frequency. denies: hematuria, discharge, abnormal menses, dyspareunia Musculoskeletal: joint swelling, arthralgia. denies: myalgia Skin: denies: rash, lesions, change in color, change in hair/nails, pruritus Neurological: denies: headache, weakness, numbness, paresthesias, confusion, ab normal gait, vertigo Psychiatric: denies: anxiety, depression, auditory hallucinations, visual hallucinations, homicidal thoughts, suicidal thoughts Hematological/Lymphatic: denies: easy bleeding, easy bruising ED Past Medical Hx - Past Medical History Previous Medical History?: Yes Hx Congestive Heart Failure: No Hx Diabetes: No Hx Asthma: No Hx COPD: No - Surgical History Past Surgical History?: Yes Additional Surgical History: C section - Social History Smoking Status: Never Smoker Substance Use Type: None - Medications Home Medications: Home Medications Medication Instructions Recorded Confirmed Last Taken Type Aspirin EC [Halfprin EC] 81 mg PO QDAY #30 tablet 05/17/20 Unknown Rx AtorvaSTATin [Lipitor] 40 mg PO QHS #30 tablet 05/17/20 Unknown Rx Hydrocortisone 1% [Hydrocortisone 1 applicatio TP BID 7 Days #1 tube 12/02/20 Unknown Rx 1% CREAM] Ibuprofen [Motrin] 600 mg PO Q8H PRN #30 tablet 12/02/20 Unknown Rx Phenazopyridine [Pyridium] 200 mg PO TID PRN #9 tab 12/02/20 Unknown Rx Sulfamethoxazole/Trimethoprim 1 each PO BID #10 tablet 12/02/20 Unknown Rx [Bactrim DS TAB] ED Physical Exam - General Limitations: No Limitations ED Course Vital Signs 12/02/20 12/02/20 05:22 06:59 Temperature 98.4 F 98 F Pulse Rate 71 63 Respiratory 20 16 Rate Blood Pressure 161/104 Blood Pressure 155/95 [Left] O2 Sat by Pulse 100 100 Oximetry ED Medical Decision Making - Medical Decision Making Urinalysis reviewed -patient does have a large amount of blood in her urine but secondary to her being on her menstrual cycle currently. She does have a large amount of leukocytes and 6+ WBCs and she is having symptoms of UTI so she will be started on Bactrim twice a day for 5 days. She also be given Pyridium to help with her dysuria which she has had in the past. Suspect that patient hand pain and swelling could be related to inflammation from repetitive hand use, carpal tunnel is also in the differential, and she also has what I suspect to be a contact dermatitis from constantly having her hand in the water. Discussed the suspected diagnosis with patient and treatment plan with patient. She will be given referral to hand specialist especially if her symptoms persist and not getting any better. In the meantime we will give her a few days off work to rest her hand. She also be given referral to primary care doctor. Patient currently is not toxic or ill-appearing. She is neurologically intact with a normal gait. She appears well-hydrated. Vital signs reviewed, her blood pressure was elevated initially at triage, it did improve a little bit upon discharge. Patient denies known history of hypertension. I did recommend that she continues to monitor her blood pressure at home and recommend that she follows up with her P PCP for continued monitoring of her blood pressure and to start any treatment if needed. Patient expressed understanding of all instructions and agree with plan. Patient stable at time of discharge. Critical care attestation.: If time is entered above; I have spent that time in minutes in the direct care of this critically ill patient, excluding procedure time. ED Disposition Clinical Impression: Bilateral hand pain, Contact dermatitis, UTI (urinary tract infection) Disposition: 01 HOME / SELF CARE / HOMELESS Is pt being admited?: No Does the pt Need Aspirin: No Condition: Stable Instructions: Urinary Tract Infection, Adult, [id number], Contact Dermatitis, [id number], Hand Pain Additional Instructions: Recommend that you take the Bactrim which is antibiotic for UTI, take as prescribed to completion. Recommend that you drink lots of water. I recommend that you take ibuprofen as prescribed to help with your hand pain and use the hydrocortisone cream to help with your rash which is likely related to contact dermatitis on your hands. I recommend limited hand use over the next 2 to 3 days that you are off. Elevate your arm as often as possible to help with any swelling. I recommend following up with freight rate specialist/hand surgeon if your symptoms persist I also recommend follow-up with your primary care doctor. Return to the ER if any of your symptoms changes or worsens in any way. Prescriptions: Sulfamethoxazole/Trimethoprim [Bactrim DS TAB] 1 each PO BID #10 tablet Hydrocortisone 1% [Hydrocortisone 1% CREAM] 1 applicatio TP BID 7 Days #1 tube Ibuprofen [Motrin] 600 mg PO Q8H PRN #30 tablet PRN Reason: Pain Phenazopyridine [Pyridium] 200 mg PO TID PRN #9 tab PRN Reason: dysuria Referrals: [facility] [Provider Group] - 3-5 Days [facility] [Provider Group] - 3-5 Days Forms: Work/School Release Form(ED) Time of Disposition: 06:49
[2020-12-02 06:35] LABS: HCG Qualitative,Urine Negative (Negative)
[2020-12-02 06:43] LABS: Bilirubin,Urine NEG (Negative); Blood,Urine LG (Negative); Color,Urine Yellow (Yellow); Mucus,Urine 3+ /HPF; RBC,Urine > 182.0 /HPF (0.0-6.0)
[2020-12-02 07:00] VITALS: BP 155/95
== END 2020-12-02 07:15 | disposition home or self-care (01) ==
LOC: ED 05:11
DX: M79.642 Pain in left hand (principal); M79.641 Pain in right hand; L25.9 Unspecified contact dermatitis, unspecified cause; N39.0 Urinary tract infection, site not specified; Z88.6 Allergy status to analgesic agent; Z88.5 Allergy status to narcotic agent
CPT/HCPCS: 81001; 81025; 99283